=== PATIENT | male | born 1985 | race Caucasian/White ===

== ENCOUNTER 2018-02-08 00:07 | Inpatient (IN) | payer MEDICAID, OTHER ==
[~2018-02-08] VITALS: Ht 172.7 cm; Wt 90.7 kg
[2018-02-08] MEDS ORDERED: SODIUM CHLORIDE 0.9% 1,000 ML IV ONE (00:38)
[2018-02-08] MEDS ORDERED: LEVETIRACETAM 500MG PREMIX 100 ML IV ONE (00:45)
[2018-02-08] MEDS ORDERED: LORAZEPAM 2MG/ML CPJ IV ONE (00:45)
[2018-02-08] MEDS ORDERED: LORAZEPAM 2MG/ML CPJ ONE (00:49)
[2018-02-08 01:04] LABS: BASOPHILS % 0.6 % (0.0-2.0); EOSINOPHILS % 0.9 % (0.0-5.0); HEMATOCRIT. 45.8 % (42.0-52.0); HEMOGLOBIN. 15.9 g/dL (14.0-18.0); LYMPHOCYTES % 14.5 % (20.0-50.0); MEAN CORPUSCULAR HEMOGLOBIN 30.3 pg (28.0-32.0); MEAN CORPUSCULAR VOLUME 87.3 fL (80.0-94.0); MEAN PLATELET VOLUME 9.1 fl (7.4-10.4); MONOCYTES % 3.9 % (2.0-8.0); NEUTROPHILS % 80.1 % (40.0-76.0); PLATELET 181 x1000/uL (130-400); RED BLOOD CELL COUNT 5.24 mill/uL (4.7-6.1); RED CELL DISTRIBUTION WIDTH 13.4 % (11.6-14.6)
[2018-02-08 01:09] LABS: CHLORIDE 107 mEq/L (98-107)
[2018-02-08 01:10] LABS: PARTIAL THROMBOPLASTIN TIME 30.7 sec (23.4-31.0); PROTHROMBIN TIME 10.5 sec (9.1-11.1)
[2018-02-08 01:13] LABS: ETHANOL BLOOD < 10 mg/dL
[2018-02-08 01:45] LABS: BG BASE EXCESS -5.3 mmol/L (-2.0-2.0); BG CARBOXYHEMOGLOBIN 0.7 % (0.5-1.5); BG DEOXYHEMOGLOBIN 5.6 % (0.0-5.0); BG FRACTION INSPIRED OXYGEN 21; BG HCO3 ACT 21.8 mmol/L (22.0-26.0); BG METHEMOGLOBIN 0.3 % (0.0-1.5); BG OXYGEN SATURATION 94.3 % (92.0-98.5); BG OXYHEMOGLOBIN 93.4 % (94.0-97.0); BG PH 7.275 (7.350-7.450); BG PO2 77.1 mmHg (75.0-100.0); BG SAMPLE SITE RIGHT RADIAL; BG TOTAL HEMOGLOBIN 15.1 g/dL (12.0-18.0); BG VENT MODE ROOM AIR
[2018-02-08 02:02] LABS: CLARITY URINE CLOUDY (CLEAR); COLOR URINE YELLOW (YELLOW); KETONES URINE TRACE (NEGATIVE); LEUKOCYTE ESTERASE URINE NEGATIVE (NEGATIVE); NITRITE URINE NEGATIVE (NEGATIVE); OCCULT BLOOD URINE TRACE (NEGATIVE); PROTEIN URINE TRACE (NEGATIVE); SPECIFIC GRAVITY URINE 1.028 (1.005-1.030); UROBILINOGEN URINE 0.2 E.U./dL (0.2-1.0)
[2018-02-08 02:13] LABS: *AMPHETAMINES SCREEN URINE NEGATIVE (NEGATIVE); *BARBITURATES SCREEN URINE NEGATIVE (NEGATIVE); *BENZODIAZEPINES SCREEN URINE NEGATIVE (NEGATIVE); *COCAINE SCREEN URINE NEGATIVE (NEGATIVE)
[2018-02-08 02:14] LABS: CANNABINOID URINE SCREEN NEGATIVE (NEGATIVE); METHADONE URINE SCREEN NEGATIVE (NEGATIVE); OPIATES URINE SCREEN NEGATIVE (NEGATIVE); PHENCYCLIDINE URINE SCREEN NEGATIVE (NEGATIVE)
[2018-02-08] MEDS ORDERED: SODIUM CHLORIDE 0.9% 1,000 ML IV SCH (05:38)
[2018-02-08 09:44] VITALS: BP_SYST 116; BP_DIAS 68; BP_DIAS 72
[2018-02-08] MEDS ORDERED: CLONIDINE 0.1MG TABLET PO PRN (10:45)
[2018-02-08] MEDS ORDERED: ACETAMINOPHEN 650MG SUPP PR PRN (10:45)
[2018-02-08] MEDS ORDERED: LORAZEPAM 2MG/ML CPJ IV PRN (11:00)
[2018-02-08 12:00] VITALS: BP 131/72
[2018-02-08] MEDS: LEVETIRACETAM 500MG TABLET PO SCH ×2 (12:56→21:16)
[2018-02-08] MEDS ORDERED: CEFTRIAXONE 1 G PREMIX 50 ML IV SCH (14:30)
[2018-02-08 20:00] VITALS: BP 120/68
[2018-02-09] VITALS: BP 109/69
[2018-02-09 04:00] VITALS: BP 96/60
[2018-02-09 07:53] LABS: BASOPHILS % 0.7 % (0.0-2.0); HEMATOCRIT. 43.8 % (42.0-52.0); MEAN CORPUSCULAR HEMOGLOBIN 30.1 pg (28.0-32.0); MEAN CORPUSCULAR VOLUME 87.8 fL (80.0-94.0); MEAN PLATELET VOLUME 9.2 fl (7.4-10.4); MONOCYTES % 6.2 % (2.0-8.0); NEUTROPHILS % 65.1 % (40.0-76.0); PLATELET 168 x1000/uL (130-400); RED BLOOD CELL COUNT 4.99 mill/uL (4.7-6.1); RED CELL DISTRIBUTION WIDTH 13.2 % (11.6-14.6)
[2018-02-09 08:00] VITALS: BP 106/68
[2018-02-09 08:17] LABS: CHLORIDE 110 mEq/L (98-107)
[2018-02-09] MEDS: LEVETIRACETAM 500MG TABLET PO SCH ×2 (08:37→20:25)
[2018-02-09] MEDS: NITROFURANTOIN 100MG M/M CAPSULE PO SCH ×2 (08:37→20:25)
[2018-02-09 12:00] VITALS: BP 114/74
[2018-02-09 16:00] VITALS: BP 119/70
[2018-02-09 20:00] VITALS: BP 117/76
[2018-02-10] VITALS: BP 108/71
[2018-02-10 04:00] VITALS: BP 116/78
[2018-02-10 08:00] VITALS: BP 116/70
[2018-02-10] MEDS: NITROFURANTOIN 100MG M/M CAPSULE PO SCH (08:22)
[2018-02-10] MEDS: LEVETIRACETAM 500MG TABLET PO SCH (08:22)
[2018-02-10 08:45] VITALS: BP 116/70
[2018-02-10] MEDS ORDERED: INFLUENZA VIRUS VACCINE(AFLURIA) 0.5ML SYR IM ONE (09:00)
[2018-02-10 11:01] VITALS: BP 116/70
[2018-02-10 12:06] VITALS: BP 119/70
== END 2018-02-10 13:05 | disposition home or self-care (01) | DRG 53 ==
LOC: ER 00:07 → 8WST 05:39 → EDBEDREQTM 05:48 → EDBEDREQ 05:48 → ENRESERV 07:09
PROVIDERS: ADMIT Emergency Medicine; ATTEND Emergency Medicine
DX: G40.89 Other seizures (principal); E86.0 Dehydration; N39.0 Urinary tract infection, site not specified
CPT/HCPCS: 36415; 36600; 70551; 71045; 80048; 80061; 80305; 82375; 82805; 83735; 84443; 84484; 90686; 93005; 96374; 99291; G0482; J0696; J1953; J2060; J7030; J7040

== ENCOUNTER 2018-03-27 02:18 | Inpatient (IN) | payer MEDICAID, OTHER ==
[2018-03-26 22:00] VITALS: BP 116/76
[~2018-03-27] VITALS: Ht 177.8 cm; Wt 89.8 kg
[2018-03-27] MEDS ORDERED: SODIUM CHLORIDE 0.9% 1,000 ML IV ONE (02:44)
[2018-03-27] MEDS ORDERED: ONDANSETRON HCL 4MG/2ML INJ IV STA (02:44)
[2018-03-27] MEDS ORDERED: LEVETIRACETAM 500MG PREMIX 100 ML IV ONE (02:45)
[2018-03-27 03:05] LABS: BASOPHILS % 0.9 % (0.0-2.0); EOSINOPHILS % 3.3 % (0.0-5.0); HEMATOCRIT. 44.7 % (42.0-52.0); HEMOGLOBIN. 15.1 g/dL (14.0-18.0); LYMPHOCYTES % 36.5 % (20.0-50.0); MEAN CORPUSCULAR HEMOGLOBIN 29.6 pg (28.0-32.0); MEAN CORPUSCULAR VOLUME 87.3 fL (80.0-94.0); MONOCYTES % 6.2 % (2.0-8.0); NEUTROPHILS % 53.1 % (40.0-76.0); PLATELET 202 x1000/uL (130-400); RED BLOOD CELL COUNT 5.12 mill/uL (4.7-6.1); RED CELL DISTRIBUTION WIDTH 13.9 % (11.6-14.6)
[2018-03-27 03:09] LABS: CHLORIDE 106 mEq/L (98-107)
[2018-03-27] MEDS ORDERED: LORAZEPAM 2MG/ML CPJ IV PRN (10:15)
[2018-03-27] MEDS ORDERED: ONDANSETRON HCL 4MG/2ML INJ IV PRN (10:15)
[2018-03-27] MEDS ORDERED: ACETAMINOPHEN 325MG TABLET PO PRN (10:15)
[2018-03-27 21:45] VITALS: BP 116/71
[2018-03-27] MEDS: LEVETIRACETAM 500MG TABLET PO SCH (22:17)
[2018-03-28] VITALS: BP 110/54
[2018-03-28 04:00] VITALS: BP 106/59
[2018-03-28 08:00] VITALS: BP 113/68
[2018-03-28] MEDS: LEVETIRACETAM 500MG TABLET PO SCH (09:35)
[2018-03-28 12:00] VITALS: BP 113/63
[2018-03-28 16:00] VITALS: BP 102/52
[2018-03-28] MEDS ORDERED: KEPP500 PO (17:12)
[2018-03-28 19:47] VITALS: BP 119/65
== END 2018-03-28 20:45 | disposition home or self-care (01) | DRG 53 ==
LOC: ER 02:18 → 8WST 05:24 → EDBEDREQ 05:35 → EDBEDREQTM 05:35 → ENRESERV 21:08
PROVIDERS: ADMIT Internal Medicine; ATTEND Internal Medicine
DX: G40.419 Other generalized epilepsy and epileptic syndromes, intractable, without status epilepticus (principal); Z91.19 Patient's noncompliance with other medical treatment and regimen
CPT/HCPCS: 36415; 71045; 84484; 93005; 96365; 96375; 99285; J1953; J2405; J7030

== ENCOUNTER 2018-07-25 02:45 | Inpatient (IN) | payer MEDICAID, OTHER ==
[~2018-07-25] VITALS: Ht 170.2 cm; Wt 72.0 kg
[~2018-07-25 02:45] MED LIST: KEPP500 PO
[2018-07-25] MEDS ORDERED: LORAZEPAM 2MG/ML CPJ ONE (03:11)
[2018-07-25] MEDS ORDERED: LEVETIRACETAM 500MG PREMIX 100 ML IV ONE (03:30)
[2018-07-25] MEDS ORDERED: LORAZEPAM 2MG/ML CPJ IV ONE (03:30)
[2018-07-25 03:38] LABS: BASOPHILS % 0.6 % (0.0-2.0); EOSINOPHILS % 0.9 % (0.0-5.0); HEMATOCRIT. 48.3 % (42.0-52.0); HEMOGLOBIN. 16.1 g/dL (14.0-18.0); MEAN CORPUSCULAR HEMOGLOBIN 30.1 pg (28.0-32.0); MEAN CORPUSCULAR VOLUME 90.6 fL (80.0-94.0); MEAN PLATELET VOLUME 9.4 fl (7.4-10.4); MONOCYTES % 5.1 % (2.0-8.0); NEUTROPHILS % 78.4 % (40.0-76.0); PLATELET 226 x1000/uL (130-400); RED BLOOD CELL COUNT 5.34 mill/uL (4.7-6.1); RED CELL DISTRIBUTION WIDTH 13.7 % (11.6-14.6)
[2018-07-25 03:44] LABS: CHLORIDE 108 mEq/L (98-107)
[2018-07-25 03:50] LABS: ETHANOL BLOOD < 10 mg/dL
[2018-07-25 08:15] VITALS: BP 100/37
== END 2018-07-25 09:40 | disposition left against medical advice (07) | DRG 53 ==
LOC: ER 03:20 → EDBEDREQSVC 04:14 → EDBEDREQ 04:14 → EDBEDREQTM 04:14 → ENRESERV 08:01 → 3WST 08:38
PROVIDERS: ADMIT Internal Medicine; ATTEND Internal Medicine
DX: G40.901 Epilepsy, unspecified, not intractable, with status epilepticus (principal); Z79.899 Other long term (current) drug therapy
CPT/HCPCS: 80048; 80320; J1953; J2060; G0480

== ENCOUNTER 2018-09-03 14:32 | Emergency (ER) | payer MEDICAID, OTHER ==
[~2018-09-03] VITALS: Ht 177.8 cm; Wt 91.0 kg
[2018-09-03] MEDS ORDERED: LEVETIRACETAM 500MG PREMIX 100 ML IV STA (15:55)
[2018-09-03] MEDS ORDERED: LEVETIRACETAM 500MG PREMIX 100 ML IV ONE (16:00)
[2018-09-03] MEDS ORDERED: LEVETIRACETAM 1000MG/100ML 100 ML IV STA ×2 (16:02→16:19)
[2018-09-03 16:17] LABS: BASOPHILS % 0.4 % (0.0-2.0); EOSINOPHILS % 1.1 % (0.0-5.0); HEMATOCRIT. 43.7 % (42.0-52.0); LYMPHOCYTES % 9.7 % (20.0-50.0); MEAN CORPUSCULAR HEMOGLOBIN 30.2 pg (28.0-32.0); MEAN CORPUSCULAR VOLUME 87.8 fL (80.0-94.0); MEAN PLATELET VOLUME 8.9 fl (7.4-10.4); MONOCYTES % 4.7 % (2.0-8.0); NEUTROPHILS % 84.1 % (40.0-76.0); PLATELET 185 x1000/uL (130-400); RED BLOOD CELL COUNT 4.98 mill/uL (4.7-6.1); RED CELL DISTRIBUTION WIDTH 13.9 % (11.6-14.6)
[2018-09-03 16:22] LABS: CHLORIDE 103 mEq/L (98-107)
[2018-09-03 16:24] LABS: PROTHROMBIN TIME 10.2 sec (9.6-11.0)
[2018-09-03 16:29] LABS: PHOSPHORUS 2.2 mg/dL (2.5-4.9)
[2018-09-03 16:30] VITALS: BP 131/47
[2018-09-03 18:03] LABS: CLARITY URINE CLEAR (CLEAR); COLOR URINE YELLOW (YELLOW); KETONES URINE NEGATIVE (NEGATIVE); LEUKOCYTE ESTERASE URINE NEGATIVE (NEGATIVE); NITRITE URINE NEGATIVE (NEGATIVE); OCCULT BLOOD URINE NEGATIVE (NEGATIVE); PH URINE 6.5 (4.5-8.0); PROTEIN URINE NEGATIVE (NEGATIVE); SPECIFIC GRAVITY URINE 1.025 (1.005-1.030); UROBILINOGEN URINE 0.2 E.U./dL (0.2-1.0)
== END 2018-09-03 18:08 | disposition home or self-care (01) ==
LOC: ER 14:32
DX: G40.909 Epilepsy, unspecified, not intractable, without status epilepticus (principal); Z91.14 Patient's other noncompliance with medication regimen
CPT/HCPCS: 36415; 80053; 81003; 83735; 84100; 85025; 85610; 96365; 99283; J1953; Z7610

== ENCOUNTER 2018-12-17 03:42 | Inpatient (IN) | payer OTHER ==
[~2018-12-17] VITALS: Ht 165.1 cm; Wt 74.8 kg
[2018-12-17] MEDS ORDERED: LEVETIRACETAM 1000MG/100ML 100 ML IV ONE (04:15)
[2018-12-17 04:44] LABS: BASOPHILS % 1.4 % (0.0-2.0); EOSINOPHILS % 4.7 % (0.0-5.0); HEMATOCRIT. 46.6 % (42.0-52.0); HEMOGLOBIN. 15.9 g/dL (14.0-18.0); LYMPHOCYTES % 22.9 % (20.0-50.0); MEAN CORPUSCULAR HEMOGLOBIN 30.2 pg (28.0-32.0); MEAN CORPUSCULAR VOLUME 88.7 fL (80.0-94.0); MEAN PLATELET VOLUME 9.2 fl (7.4-10.4); MONOCYTES % 5.8 % (2.0-8.0); NEUTROPHILS % 65.2 % (40.0-76.0); PLATELET 168 x1000/uL (130-400); RED BLOOD CELL COUNT 5.26 mill/uL (4.7-6.1); RED CELL DISTRIBUTION WIDTH 13.4 % (11.6-14.6)
[2018-12-17 04:48] LABS: CHLORIDE 109 mEq/L (98-107)
[2018-12-17 04:50] LABS: ETHANOL BLOOD < 10 mg/dL
[2018-12-17] MEDS ORDERED: LORAZEPAM 2MG/ML CPJ IV ONE (05:00)
[2018-12-17 06:04] LABS: CLARITY URINE CLEAR (CLEAR); COLOR URINE YELLOW (YELLOW); KETONES URINE NEGATIVE (NEGATIVE); LEUKOCYTE ESTERASE URINE NEGATIVE (NEGATIVE); NITRITE URINE NEGATIVE (NEGATIVE); OCCULT BLOOD URINE NEGATIVE (NEGATIVE); PROTEIN URINE NEGATIVE (NEGATIVE); SPECIFIC GRAVITY URINE 1.026 (1.005-1.030); UROBILINOGEN URINE 0.2 E.U./dL (0.2-1.0)
[2018-12-17 06:20] LABS: *AMPHETAMINES SCREEN URINE NEGATIVE (NEGATIVE); *BARBITURATES SCREEN URINE NEGATIVE (NEGATIVE); *BENZODIAZEPINES SCREEN URINE NEGATIVE (NEGATIVE)
[2018-12-17 06:21] LABS: *COCAINE SCREEN URINE NEGATIVE (NEGATIVE); CANNABINOID URINE SCREEN NEGATIVE (NEGATIVE); METHADONE URINE SCREEN NEGATIVE (NEGATIVE); OPIATES URINE SCREEN NEGATIVE (NEGATIVE); PHENCYCLIDINE URINE SCREEN NEGATIVE (NEGATIVE)
[2018-12-17 08:00] VITALS: BP 112/67
[2018-12-17] MEDS ORDERED: ACETAMINOPHEN 325MG TABLET PO PRN (08:15)
[2018-12-17] MEDS ORDERED: ONDANSETRON HCL 4MG/2ML INJ IV PRN (08:15)
[2018-12-17] MEDS ORDERED: LEVETIRACETAM 500MG TABLET PO SCH (09:00)
[2018-12-17 11:50] VITALS: BP 116/67
[2018-12-17] MEDS ORDERED: INFLUENZA VIRUS VACCINE(AFLURIA) 0.5ML SYR IM ONE (16:15)
[2018-12-17 16:19] VITALS: BP 100/50
== END 2018-12-17 18:51 | disposition left against medical advice (07) | DRG 53 ==
LOC: ER 03:42 → 7WST 05:21 → ENRESERV 07:36
PROVIDERS: ADMIT Internal Medicine; ATTEND Internal Medicine
DX: G40.909 Epilepsy, unspecified, not intractable, without status epilepticus (principal); E87.8 Other disorders of electrolyte and fluid balance, not elsewhere classified; Z53.29 Procedure and treatment not carried out because of patient's decision for other reasons; R74.0 Nonspecific elevation of levels of transaminase and lactic acid dehydrogenase [LDH]; Z91.14 Patient's other noncompliance with medication regimen; Z91.19 Patient's noncompliance with other medical treatment and regimen
CPT/HCPCS: 36415; 80305; 80320; 81003; 90686; 99285; J1953; J2060; G0480

== ENCOUNTER 2019-02-28 00:30 | Emergency (ER) | payer OTHER ==
[~2019-02-28] VITALS: Ht 172.7 cm; Wt 82.0 kg
[2019-02-28] MEDS ORDERED: LEVETIRACETAM 500MG/5ML CUP PO ONE (01:30)
[2019-02-28 02:16] VITALS: BP 137/82
== END 2019-02-28 02:35 | disposition home or self-care (01) ==
LOC: ER 00:30
DX: S01.512A Laceration without foreign body of oral cavity, initial encounter (principal); R56.9 Unspecified convulsions; Z91.14 Patient's other noncompliance with medication regimen; X58.XXXA Exposure to other specified factors, initial encounter; Y93.89 Activity, other specified; Y92.89 Other specified places as the place of occurrence of the external cause; Y99.8 Other external cause status
CPT/HCPCS: 99283

== ENCOUNTER 2019-04-01 02:30 | Emergency (ER) | payer OTHER ==
[~2019-04-01] VITALS: Ht 175.3 cm; Wt 86.0 kg
[2019-04-01] MEDS ORDERED: LORAZEPAM 2MG/ML CPJ IV ONE (02:45)
[2019-04-01] MEDS ORDERED: LORAZEPAM 2MG/ML CPJ ONE (02:47)
[2019-04-01 03:14] LABS: BASOPHILS % 1.1 % (0.0-2.0); CHLORIDE 109 mEq/L (98-107); EOSINOPHILS % 1.8 % (0.0-5.0); HEMATOCRIT. 47.3 % (42.0-52.0); HEMOGLOBIN. 15.6 g/dL (14.0-18.0); LYMPHOCYTES % 20.9 % (20.0-50.0); MEAN CORPUSCULAR HEMOGLOBIN 29.9 pg (28.0-32.0); MEAN CORPUSCULAR VOLUME 90.9 fL (80.0-94.0); MEAN PLATELET VOLUME 9.9 fl (7.4-10.4); MONOCYTES % 5.7 % (2.0-8.0); NEUTROPHILS % 70.5 % (40.0-76.0); PLATELET 230 x1000/uL (130-400); RED BLOOD CELL COUNT 5.21 mill/uL (4.7-6.1); RED CELL DISTRIBUTION WIDTH 13.8 % (11.6-14.6)
[2019-04-01 03:22] LABS: ETHANOL BLOOD < 10 mg/dL
[2019-04-01 03:26] LABS: CREATINE KINASE 220 IU/L (39-308)
[2019-04-01] MEDS ORDERED: LACTULOSE 20G/30ML UDC PO NR (04:30)
[2019-04-01 07:41] VITALS: BP 117/68
== END 2019-04-01 07:52 | disposition short-term general hospital (02) ==
LOC: ER 02:30 → CANBEDREQ 08:47
DX: G40.909 Epilepsy, unspecified, not intractable, without status epilepticus (principal); E72.20 Disorder of urea cycle metabolism, unspecified
CPT/HCPCS: 36415; 80053; 80185; 80320; 82140; 82542; 82550; 85025; 96374; 99285; J2060; G0480

== ENCOUNTER 2019-07-09 16:28 | Emergency (ER) | payer OTHER ==
[~2019-07-09] VITALS: Ht 177.8 cm; Wt 96.0 kg
[2019-07-09] MEDS ORDERED: SODIUM CHLORIDE 0.9% 1,000 ML IV ONE (16:36)
[2019-07-09] MEDS ORDERED: LEVETIRACETAM 1000MG/100ML 100 ML IV ONE (16:45)
[2019-07-09 17:29] LABS: BASOPHILS % 0.8 % (0.0-2.0); EOSINOPHILS % 2.8 % (0.0-5.0); HEMATOCRIT. 45.5 % (42.0-52.0); HEMOGLOBIN. 15.7 g/dL (14.0-18.0); LYMPHOCYTES % 32.9 % (20.0-50.0); MEAN CORPUSCULAR HEMOGLOBIN 30.5 pg (28.0-32.0); MEAN CORPUSCULAR VOLUME 88.5 fL (80.0-94.0); MEAN PLATELET VOLUME 9.1 fl (7.4-10.4); MONOCYTES % 6.7 % (2.0-8.0); NEUTROPHILS % 56.8 % (40.0-76.0); PLATELET 188 x1000/uL (130-400); RED BLOOD CELL COUNT 5.14 mill/uL (4.7-6.1); RED CELL DISTRIBUTION WIDTH 13.4 % (11.6-14.6)
[2019-07-09 17:35] LABS: CHLORIDE 105 mEq/L (98-107)
[2019-07-09 17:43] LABS: ETHANOL BLOOD < 10 mg/dL
[2019-07-09 17:56] VITALS: BP 122/68
== END 2019-07-09 18:00 | disposition left against medical advice (07) ==
LOC: ER 16:28
DX: R56.9 Unspecified convulsions (principal)
CPT/HCPCS: 36415; 80053; 80320; 85025; 96365; 99284; J1953; J7030; G0480

== ENCOUNTER 2020-12-16 10:27 | Emergency (ER) | payer OTHER ==
[~2020-12-16] VITALS: Ht 177.8 cm; Wt 91.0 kg
[2020-12-16 10:38] VITALS: BP 129/59
== END 2020-12-16 13:31 | disposition home or self-care (01) ==
LOC: ER 10:27
DX: I87.8 Other specified disorders of veins (principal)
CPT/HCPCS: 93971; 99284

== ENCOUNTER 2021-08-05 09:47 | Emergency (ER) | payer OTHER ==
[~2021-08-05] VITALS: Ht 177.8 cm; Wt 75.0 kg
[2021-08-05 09:52] VITALS: BP 117/66
[2021-08-05] MEDS ORDERED: LEVE750T4 MT (10:27)
[2021-08-05] MEDS ORDERED: LEVETIRACETAM 500MG TABLET PO ONE (10:30)
== END 2021-08-05 10:38 | disposition home or self-care (01) ==
LOC: ER 09:47
DX: R56.9 Unspecified convulsions (principal); S01.512A Laceration without foreign body of oral cavity, initial encounter; X58.XXXA Exposure to other specified factors, initial encounter; Y93.89 Activity, other specified; Y92.89 Other specified places as the place of occurrence of the external cause; Y99.8 Other external cause status
CPT/HCPCS: 99283

== ENCOUNTER 2021-09-08 09:28 | Emergency (ER) | payer OTHER ==
[~2021-09-08] VITALS: Ht 175.3 cm; Wt 87.0 kg
[~2021-09-08 09:28] MED LIST changes: +LEVE750T4 MT
[2021-09-08 09:55] VITALS: BP 150/70
== END 2021-09-08 10:25 | disposition home or self-care (01) ==
LOC: ER 09:50
DX: G40.909 Epilepsy, unspecified, not intractable, without status epilepticus (principal); R41.0 Disorientation, unspecified; S00.512A Abrasion of oral cavity, initial encounter; R03.0 Elevated blood-pressure reading, without diagnosis of hypertension; X58.XXXA Exposure to other specified factors, initial encounter; Y93.9 Activity, unspecified; Y92.89 Other specified places as the place of occurrence of the external cause
CPT/HCPCS: 99283

== ENCOUNTER 2022-01-15 11:45 | Emergency (ER) | payer OTHER ==
[~2022-01-15] VITALS: Ht 170.2 cm; Wt 84.0 kg
[2022-01-15 11:49] VITALS: BP 115/69
== END 2022-01-15 14:42 | disposition left against medical advice (07) ==
LOC: ER 11:45
DX: G40.909 Epilepsy, unspecified, not intractable, without status epilepticus (principal); S00.512A Abrasion of oral cavity, initial encounter; R32 Unspecified urinary incontinence; Z79.899 Other long term (current) drug therapy; X58.XXXA Exposure to other specified factors, initial encounter; Y93.9 Activity, unspecified; Y92.89 Other specified places as the place of occurrence of the external cause
CPT/HCPCS: 99283

== ENCOUNTER 2022-05-01 10:41 | Emergency (ER) | payer OTHER ==
[~2022-05-01] VITALS: Ht 167.6 cm; Wt 82.0 kg
[2022-05-01 10:53] VITALS: BP 136/75
[2022-05-01] MEDS ORDERED: LIDOCAINE HCL 1% 20ML VIAL (Pyxis) INJ INFIL ONE (11:00)
[2022-05-01] MEDS ORDERED: TETANUS, DIPHTHERIA, PERTUSSIS VAC/PF 0.5ML (>10YR OLD) IM ONE (11:00)
[2022-05-01] MEDS ORDERED: CEFAZOLIN 1000MG PREMIX 50 ML IV ONE (13:45)
[2022-05-01] MEDS ORDERED: CEPH250C2 MT (14:37)
== END 2022-05-01 15:04 | disposition home or self-care (01) ==
LOC: ER 10:49
DX: S62.306A Unspecified fracture of fifth metacarpal bone, right hand, initial encounter for closed fracture (principal); Z86.59 Personal history of other mental and behavioral disorders; X58.XXXA Exposure to other specified factors, initial encounter; Y93.89 Activity, other specified; Y92.89 Other specified places as the place of occurrence of the external cause; Y99.8 Other external cause status
CPT/HCPCS: 12001; 73130; 90471; 90715; 96365; 99291; J0690; J3490; Z7610

== ENCOUNTER 2022-05-07 13:51 | Emergency (ER) | payer OTHER ==
[~2022-05-07] VITALS: Ht 170.2 cm; Wt 80.0 kg
[~2022-05-07 13:51] MED LIST changes: +CEPH250C2 MT
[2022-05-07 14:06] VITALS: BP 127/75
== END 2022-05-07 20:01 | disposition left against medical advice (07) ==
LOC: ER 13:51
DX: Z53.21 Procedure and treatment not carried out due to patient leaving prior to being seen by health care provider (principal); M79.89 Other specified soft tissue disorders
CPT/HCPCS: 99281

== ENCOUNTER 2022-05-08 22:34 | Emergency (ER) | payer OTHER ==
[~2022-05-08] VITALS: Ht 177.8 cm; Wt 100.0 kg
[2022-05-08 22:56] VITALS: BP 134/80
[2022-05-09] MEDS ORDERED: IBUP-2029 MT (06:48)
[2022-05-09] MEDS ORDERED: IBUPROFEN 600MG TABLET PO ONE (07:00)
== END 2022-05-09 07:00 | disposition home or self-care (01) ==
LOC: ER 22:44
DX: S62.396A Other fracture of fifth metacarpal bone, right hand, initial encounter for closed fracture (principal); X58.XXXA Exposure to other specified factors, initial encounter; Y93.9 Activity, unspecified; Y92.9 Unspecified place or not applicable
CPT/HCPCS: 29125; 99283; Z7610